=== PATIENT | female | born 1975 | race Caucasian/White ===

== ENCOUNTER 2019-03-04 20:48 | Inpatient (IN) | payer OTHER ==
[2019-03-04] MEDS ORDERED: LACTATED RINGERS 1,000 ML ONE ×2 (21:34→23:15)
[2019-03-04] MEDS ORDERED: PITOCin/NS 30 UNIT/500ML 30,000 MILLIUNITS/500 ML BAG IV ONE (23:15)
[2019-03-04] MEDS ORDERED: PITOCin/NS 30 UNIT/500ML 30 UNITS/500 ML BAG IV SCH (23:45)
[2019-03-04] MEDS ORDERED: LACTATED RINGERS 1,000 ML IV SCH (23:45)
[2019-03-05 00:12] LABS: Hematocrit 37.1 % (30.3-42.9); Hemoglobin 12.1 gm/dl (10.1-14.3); Mean Corpuscular HGB Conc 33 % (30-34); Mean Corpuscular Volume 89 fl (79-97); Red Blood Count 4.18 M/mm3 (3.65-5.03); Red Cell Distribution Width 14.8 % (13.2-15.2)
[2019-03-05 00:15] LABS: Platelet Count 140 K/mm3 (140-440)
--- NOTE | 2019-03-05 05:54 | History and Physical Report ---
History of Present Illness Date of examination: 03/05/19 Date of admission: 03/04/19 20:48 Chief complaint: Induction of labor History of present illness: Pt is a 43yo HF EDC 03/04/19; EGA 40 1/7 weeks presents for induction of labor. She received care at [facility] since 11 weeks and course has been unremarkable except for AMA. records are available and GBS is Negative. Past History Past Medical History: no pertinent history Past Surgical History: breast surgery Family/Genetic History: none Social history: no significant social history, single - Obstetrical History Expected Date of Delivery: 03/04/19 Actual Gestation: 40 Week(s) 1 Day(s) : 2 Medications and Allergies Allergies Allergy/AdvReac Type Severity Reaction Status Date / Time No Known Allergies Allergy Unverified 03/04/19 23:52 Active Meds: Active Medications Lactated Ringer's (Lactated Ringers) 1,000 mls @ 125 mls/hr IV DIRECT MADELEINE Oxytocin/Sodium Chloride (Pitocin/Ns 30 Unit/500ml) 30 units in 500 mls @ 1 mls/hr IV TITR MADELEINE; Protocol Review of Systems All systems: negative - Vital Signs Vital signs: Vital Signs Pulse BP 71 118/68 03/04/19 21:17 03/04/19 21:17 Temp Pulse Resp BP Pulse Ox 71 118/68 03/04/19 21:17 03/04/19 21:17 - Physical Exam Breasts: Positive: deferred Cardiovascular: Regular rate Lungs: Positive: Clear to auscultation Abdomen: Positive: normal appearance Genitourinary (Female): Positive: normal external genitalia Vagina: Positive: normal moisture Uterus: Positive: enlarged Extremities: Positive: normal - Obstetrical FHR: category 1 Uterine Contraction Monitor Mode: External Cervical Dilatation: 0 (per nurse) Cervical Effacement Percentage: 50 (per nurse) station: -2 Uterine Contraction Pattern: Absent Results Result Diagrams: 03/04/19 23:23 All other labs normal. Assessment and Plan - Patient Problems (1) 40 weeks gestation of Onset Date: 03/05/19 Current Visit: Yes Status: Acute Plan to address problem: A: IUP @ 40 1/7 weeks AMA P: Admit for cervidil/pitocin induction of labor (2) AMA (advanced maternal age) multigravida 35+ Onset Date: 03/05/19 Current Visit: Yes Status: Acute Qualifiers: Trimester: third trimester Qualified Code(s): O09.523 - Supervision of elderly multigravida, third trimester
[2019-03-05] MEDS ORDERED: MINERAL OIL PO PRN (05:57)
[2019-03-05] MEDS ORDERED: SUBLIMAZE IV PRN (05:57)
[2019-03-05] MEDS ORDERED: XYLOCAINE 2% INFILTRATI ONE (05:57)
[2019-03-05] MEDS ORDERED: ZOFRAN IV PRN (05:57)
[2019-03-05] MEDS ORDERED: STADOL IV PRN (05:57)
[2019-03-05] MEDS ORDERED: BRETHINE SUB-Q PRN (05:57)
[2019-03-05] MEDS ORDERED: BRETHINE IVP PRN (05:57)
[2019-03-05] MEDS ORDERED: PITOCin/NS 20 UNIT/1000ML DRIP 20 UNITS/1,000 ML BAG IV SCH (06:00)
[2019-03-05] MEDS ORDERED: PITOCin/NS 30 UNIT/500ML 30 UNITS/500 ML BAG IV SCH (06:00)
--- NOTE | 2019-03-05 09:01 | Progress Note ---
Assessment and Plan - Patient Problems (1) Encounter for induction of labor Current Visit: Yes Status: Acute Plan to address problem: Stop low dose Pitocin May eat breakfast Place cervidil at 1000 Anticipate (2) AMA (advanced maternal age) multigravida 35+ Onset Date: 03/05/19 Current Visit: Yes Status: Acute Qualifiers: Trimester: third trimester Qualified Code(s): O09.523 - Supervision of elderly multigravida, third trimester Subjective - Subjective Date of service: 03/05/19 (0857) Principal diagnosis: IOL Interval history: See admission H & P Patient reports: movement normal, contractions (irregular), no loss of fluid, no vaginal bleeding Objective - Vital Signs Vital Signs: Vital Signs - 12hr 03/04/19 03/05/19 21:17 07:15 Temperature 97.6 F Pulse Rate 71 Blood Pressure 118/68 - Exam Breasts: deferred Cardiovascular: Regular rate Lungs: Normal air movement Abdomen: Present: other (gravid) Vulva: both: normal Uterus: Present: other (gravid, S=D) FHR: category 1 Uterine Contraction Monitor Mode: External Cervical Dilatation: 1 Cervical Effacement Percentage: 50 station: -3 Uterine Contraction Frequency (min): 2-4 Uterine Contraction Pattern: Irregular Uterine Tone Measurement Phase: Resting Uterine Contraction Intensity: Mild Extremities: normal Deep Tendon Reflex Grade: Normal +2 - Labs Labs: Laboratory Results - last 24 hr 03/04/19 03/04/19 23:23 23:30 WBC 7.0 RBC 4.18 Hgb 12.1 Hct 37.1 MCV 89 MCH 29 MCHC 33 RDW 14.8 Plt Count 140 Blood Type A POSITIVE Antibody Screen Negative
[2019-03-05] MEDS ORDERED: CERVIDIL VG ONE (10:00)
[2019-03-05] MEDS: LACTATED RINGERS 1,000 ML IV SCH (14:49)
--- NOTE | 2019-03-05 18:54 | Event Note ---
Date: 03/05/19 Assumed care of patient at 5:00 PM. Patient had Cervidil. Cervidil is now out of vagina and lying on bed. Patient requests pain medication. SVE 4-5/100/-3 to -4 station.
--- NOTE | 2019-03-05 20:04 | Ultrasound Report ---
ULTRASOUND OBSTETRIC INDICATION / CLINICAL INFORMATION: EFW. Clinical Gestational Age (GA): LMP uncertain TECHNIQUE: Transabdominal. COMPARISON: None available. FINDINGS: There is a single intrauterine . Biparietal Diameter = 9.5 cm = 38 weeks, 4 day(s). Head Circumference = 33.1 cm = 37 weeks, 5 day(s). Abdominal Circumference = 35.3 cm = 39 weeks, 2 day(s). Femur Length = 7.7 cm = 39 weeks, 3 day(s). Average Ultrasound Age (AUA) = 38 weeks, 5 day(s). Heart Rate: 138 beats per minute. Estimated Weight in grams (if calculated): 3665 Estimated Weight Growth Percentile (if calculated): Not calculated Position: cephalic. Cervix: Not examined Placenta: Fundal and free of the os. Amniotic Fluid Volume: Visually decreased Amniotic Fluid Index (MIRIAM) in cm (if calculated): Not calculated. Maternal Adnexa: Not visualized IMPRESSION: 1. Single, living intrauterine with estimated sonographic age of 38 weeks, 5 day(s). 2. Oligohydramnios with no amniotic fluid visualized on the included images. Signer Name: Moises Dos Santos MD Signed: 03/05/2019 7:59 PM Workstation Name: [id number]
[2019-03-05] MEDS ORDERED: NARCAN 2 MG/2 ML IV PRN (20:21)
--- NOTE | 2019-03-05 20:35 | Anesthesia Consultation ---
Anesthesia Consult and Med Hx Date of service: 03/05/19 - Airway Anesthetic Teeth Evaluation: Good ROM Head & Neck: Adequate Mental/Hyoid Distance: Adequate Mallampati Class: Class II Intubation Access Assessment: Probably Good - Pulmonary Exam CTA: Yes - Cardiac Exam Cardiac Exam: RRR - Pre-Operative Health Status ASA Pre-Surgery Classification: ASA2 Proposed Anesthetic Plan: Epidural - Pulmonary Hx Smoking: No Hx Asthma: No Hx Respiratory Symptoms: No SOB: No COPD: No Home Oxygen Therapy: No Hx Pneumonia: No Hx Sleep Apnea: No - Cardiovascular System Hx Hypertension: No Hx Coronary Artery Disease: No Hx Heart Attack/AMI: No Hx Angina: No Hx Percutaneous Transluminal Coronary Angioplasty (PTCA): No Hx Cardia Arrhythmia: No Hx Pacemaker: No Hx Internal Defibrillator: No Hx Valvular Heart Disease: No Hx Heart Murmur: No Hx Peripheral Vascular Disease: No - Central Nervous System Hx Neuromuscular Disorder: No Hx Seizures: No CVA: No Hx Back Pain: Yes Hx Psychiatric Problems: No - Gastrointestinal Hx Ulcer: No Hx Gastroesophageal Reflux Disease: Yes - Endocrine Hx Renal Disease: No Hx End Stage Renal Disease: No Hx Cirrhosis: No Hx Liver Disease: No Hx Insulin Dependent Diabetes: No Hx Non-Insulin Dependent Diabetes: No Hx Thyroid Disease: No Hx Hypothyroidism: No Hx Hyperthyroidism: No - Hematic Hx Anemia: No Hx Sickle Cell Disease: No - Other Systems Hx Alcohol Use: No Hx Substance Use: No Hx Cancer: No Hx Obesity: No
[2019-03-05] MEDS ORDERED: fentaNYL-BUPIV 2 MCG/ML-0.125% 200 MCG/100 ML BAG EPIDURAL SCH (21:00)
--- NOTE | 2019-03-05 23:00 | Event Note ---
Date: 03/05/19 SVE /-1.
[2019-03-06] MEDS: LACTATED RINGERS 1,000 ML IV SCH ×2 (03:14→18:14)
--- NOTE | 2019-03-06 03:41 | Event Note ---
Date: 03/06/19 SVE: /-2. Patient has been receiving Pitocin for augmentation of labor. Consulted with Dr. Singh re: patient and slow cervical change. Dr. Singh states he will perform a section. Discussed this plan with patient and family.
--- NOTE | 2019-03-06 03:56 | Event Note ---
Date: 03/06/19 Patient declined/refused section. Notified Dr. Singh.
--- NOTE | 2019-03-06 04:52 | Event Note ---
Date: 03/06/19 Induction of labor stalled at 9 cm for the past 5-6 hours. heart tracing cat 2. Op, at 0-3 station, meconium stained fluid. Cervix 8cm dilated. Situation explained to patient through a Greek speaking retarder operator. Risks of continuing induction and delivery fully explained. section was ordered. Pitocin induction was ordered to be discontinued. IMP: CPD, Failure to progress. Plan: For delivery.
[2019-03-06] MEDS ORDERED: BICITRA PO ONE (05:00)
[2019-03-06] MEDS ORDERED: BICITRA ONE (05:12)
[2019-03-06] MEDS ORDERED: PEPCID IV ONE ×2 (05:12→07:25)
[2019-03-06] MEDS ORDERED: REGLAN ONE (05:12)
[2019-03-06] MEDS ORDERED: DILAUDID IV PRN ×3 (05:13→07:28)
[2019-03-06] MEDS ORDERED: ZOFRAN IV PRN ×2 (05:13→07:28)
[2019-03-06] MEDS ORDERED: NARCAN 0.4 MG/1 ML IV PRN ×3 (05:13→07:28)
--- NOTE | 2019-03-06 05:13 | Anesthesia Day of Surgery ---
Anesthesia Day of Surgery - Day of Surgery Patient Examined: Yes Patient H&P Reviewed: Yes Patient is NPO: Yes Beta Blockers: Yes Cardiac Clearance: No Pulmonary Clearance: No Zachary's Test: N/A
[2019-03-06] MEDS ORDERED: MARCAINE 0.5% INFILTRATI ONE (05:18)
[2019-03-06] MEDS ORDERED: SUBLIMAZE ONE (05:25)
[2019-03-06] MEDS ORDERED: XYLOCAINE MPF 2% ONE ×2 (05:26→06:16)
[2019-03-06] MEDS ORDERED: NACL 0.9% IR ONE (05:40)
[2019-03-06] MEDS ORDERED: WATER FOR IRRIG STERILE IR ONE (05:40)
[2019-03-06] MEDS ORDERED: SODIUM CHLORIDE FLUSH SYRINGE 10 ML IV NR ×3 (06:00→08:00)
[2019-03-06] MEDS ORDERED: VERSED ONE (06:31)
[2019-03-06] MEDS ORDERED: TUCKS PAD TP PRN (07:00)
[2019-03-06] MEDS ORDERED: PHENERGAN PR PRN (07:00)
[2019-03-06] MEDS ORDERED: PERCOCET 5/325 PO PRN (07:00)
[2019-03-06] MEDS ORDERED: PITOCin/NS 20 UNIT/1000ML DRIP 20 UNITS/1,000 ML BAG IV SCH (07:00)
--- NOTE | 2019-03-06 07:03 | Operative Report ---
Operative Report Operative Report: Date of surgery: 03/06/2019. Preoperative diagnosis: Failure to progress, failed induction, cephalopelvic dis proportion. Postoperative diagnoses: The same. Procedure: Low segment transverse section. Surgeon:Lindsay Singh MD. Child Guidance Counselor: Kristina Chavez CRNA. Anesthesia: Spinal blockade. Estimated blood loss 300 mL. Complications: None Findings: There was a live baby boy, 9 lbs. 1 oz., Apgars 8 and 9 in the occiput posterior position within the false maternal pelvis. Both ovaries and fallopian tubes were grossly normal. The uterus was unremarkable gravid structure. There was no discernible peritoneal adhesions within the pelvis. The loops of bowel palpable through the Pfannenstiel incision were all grossly normal. Procedure in detail: The patient was taken to the operating room. She already had indwelling Cade catheter. She was given a spinal blockade. The patient was placed in the straight supine position with a slight left lateral tilt. The patient was prepped and the abdomen. The drapes where placed. A timeout was done. With the go ahead from the crop specialist a Pfannenstiel incision was made. This incision was carried across the subcutaneous layer and to the fascia which was then divided transversely. The underlying flaps of correct thigh abdominis muscle flaps were freed using a combination of sharp and blunt dissections. The anterior parietal peritoneum was carefully identified and then breached. The laparotomy was widened by manual stretching. The bladder blade was applied. The uterovesical peritoneal flap was divided transversely allowing the bladder to be displaced caudally. The uterine incision was placed transversely in the lower segment. The uterine cavity was entered bluntly with the index finger. There was an effusion of clear amniotic fluid. The head of the fetus was easily lifted out of the false pelvis and delivered through the incision using fundal pressure. The airways were bulb suctioned beginning with the month. The rest of the baby was delivered by a combination of gentle traction on the mandibular processes as well as continuing fundal pressure. The umbilical cord was double clamped and divided and the baby passed on safely to the pediatric team. The placenta was manually removed from the uterine cavity. The uterine cavity was explored and was empty of any placental remnants. The uterine incision was repaired in 3 layers with 0 Vicryl. Hemostasis was excellent. The integrity of the urinary bladder was checked by examination of the tissues around the bulb of the Cade catheter. The anterior parietal peritoneum was repaired with #1 Vicryl. The fascia was repaired with 0 Vicryl. The skin was closed subcuticularly with 4-0 Vicryl on a Eduard needle. Patient tolerated the procedure well. There were no complications. The estimated blood loss was 300 mL. All sponge and instrument counts were correct. The patient was transferred to the recovery room in very good condition.
--- NOTE | 2019-03-06 07:28 | Post Anesthesia Evaluation ---
- Post Anesthesia Evaluation Patient Participated: Yes Airway Patent: Yes Stable Respiratory Function: Yes Nausea/Vomiting: No Temp > 96.8F: Yes Pain Manageable: Yes Adequeate Hydration: Yes Anesthesia Complications: No Block Receding Appropriately: Yes Patient on Ventilator: No
[2019-03-06] MEDS ORDERED: ceFAZolin 2 GM in NACL 0.9% 100 ML IV ONE (08:00)
[2019-03-06] MEDS ORDERED: REGLAN IV NR (08:00)
[2019-03-06] MEDS: PERCOCET 5/325 PO PRN ×3 (09:03→20:36)
[2019-03-06] MEDS: ANCEF/NS 1 GM/50 ML 1 GM/50 ML BAG IV SCH ×2 (14:39→22:14)
[2019-03-06 18:16] LABS: Hematocrit 30.2 % (30.3-42.9); Hemoglobin 9.8 gm/dl (10.1-14.3)
[2019-03-07] MEDS: PERCOCET 5/325 PO PRN ×4 (01:39→18:16)
[2019-03-07] MEDS: LACTATED RINGERS 1,000 ML IV SCH (03:25)
[2019-03-07] MEDS: ANCEF/NS 1 GM/50 ML 1 GM/50 ML BAG IV SCH ×2 (05:43→14:00)
[2019-03-07] MEDS: MYLICON PO PRN (10:30)
[2019-03-07] MEDS ORDERED: FEOSOL PO SCH (16:00)
--- NOTE | 2019-03-07 16:02 | Progress Note ---
Assessment and Plan A: /postop day 1 S/P primary low transverse section. Anemia secondary to and blood loss. P: Supplement with iron. Encouraged ambulation. Subjective - Subjective Date of service: 03/07/19 Principal diagnosis: /postop day 1 S/P primary low transverse section Interval history: /postop day 1 S/P primary low transverse section. Doing well. Reports small amount of lochia. Voiding without difficulty. Passing gas. Ambulating well. Tolerating a regular diet. Patient denies headache, chest pain, cough, shortness of breath, leg pain, heavy bleeding, or abdominal pain. Patient reports: appetite normal, voiding normally, pain well controlled, flatus, ambulating normally, no dizzy ambulation, no nauseated Goodells: doing well Objective - Vital Signs Latest vital signs: Vital Signs Temp Pulse Resp BP BP Pulse Ox 03/07/19 15:21 97.6 F 81 24 98/62 97 03/07/19 12:29 18 03/07/19 09:38 97.8 F 61 16 123/72 94 03/07/19 05:44 98.2 F 88 20 93/61 98 03/06/19 23:49 98.5 F 76 20 96/64 97 03/06/19 19:39 98.6 F 85 20 97/62 99 03/06/19 16:30 98.1 F 73 20 98/63 98 Intake and Output 03/07/19 03/07/19 03/07/19 07:59 15:59 23:59 Intake Total 1000 Output Total 1000 Balance 0 Intake: IV 1000 Lactated Ringers 1,000 ml 1000 @ 125 mls/hr IV DIRECT MADELEINE Rx#:[id number] Output: Urine 1000 Void 1000 Other: Total, Output Amount 700 # Voids Void 1 - Exam Cardiovascular: Present: Regular rate, Normal S1, Normal S2, No murmurs Lungs: Present: Clear to auscultation Abdomen: Present: normal appearance, soft, normal bowel sounds. Absent: distention, tenderness, guarding, rigidity Uterus: Present: normal, firm, fundal height below umbilicus. Absent: bogginess, tenderness Extremities: Present: normal. Absent: tenderness, edema Incision: Present: normal, dry, intact, dressed - Labs Labs: Abnormal lab results 03/06/19 Range/Units 17:42 Hgb 9.8 L (10.1-14.3) gm/dl Hct 30.2 L D (30.3-42.9) %
[2019-03-08] MEDS: PERCOCET 5/325 PO PRN ×5 (00:53→23:39)
[2019-03-08] MEDS: FEOSOL PO SCH ×2 (09:51→21:50)
[2019-03-08] MEDS: MYLICON PO PRN (09:51)
--- NOTE | 2019-03-08 10:36 | Progress Note ---
Assessment and Plan - Patient Problems (1) AMA (advanced maternal age) multigravida 35+ Onset Date: 03/05/19 Current Visit: Yes Status: Acute Qualifiers: Trimester: third trimester Qualified Code(s): O09.523 - Supervision of elderly multigravida, third trimester (2) S/P section Current Visit: Yes Status: Acute Plan to address problem: Continue routine PP orders Keep incision clean and dry Anticipate d/c home in 24 hrs (3) Anemia Current Visit: Yes Status: Acute Qualifiers: Anemia type: other cause Other causes of anemia: acute posthemorrhagic Qualified Code(s): D62 - Acute posthemorrhagic anemia Subjective - Subjective Date of service: 03/08/19 Principal diagnosis: /postop day 2 S/P primary low transverse section Interval history: See admission H & P and PP progress notes Patient reports: appetite normal, voiding normally, pain well controlled (with medications), flatus, ambulating normally, no bowel movement : doing well, bottle feeding (and ) Objective - Vital Signs Latest vital signs: Vital Signs Temp Pulse Resp BP BP Pulse Ox 03/08/19 08:28 98 F 69 20 90/51 03/07/19 23:10 98.2 F 77 20 99/67 97 03/07/19 18:16 18 03/07/19 16:51 97.8 F 82 16 97/51 100 03/07/19 15:21 97.6 F 81 24 98/62 97 03/07/19 12:29 18 Intake and Output 03/07/19 03/08/19 03/08/19 23:59 07:59 15:59 Intake Total 240 320 Balance 240 320 Intake: Oral 240 320 Other: Total, Intake Amount 240 320 # Voids Void 1 1 - Exam Breasts: Present: normal Cardiovascular: Present: Regular rate Lungs: Present: Normal air movement Abdomen: Present: soft, tenderness, normal bowel sounds Uterus: Present: firm, fundal height below umbilicus (U-1) Extremities: Present: normal, edema (slight edema in BLE) Deep Tendon Reflex Grade: Normal +2 Incision: Present: dry, intact (no signs of infection noted)
--- NOTE | 2019-03-08 10:41 | Discharge Summary ---
Providers - Providers Date of Admission: 03/04/19 20:48 Date of discharge: 03/09/19 Attending physician: JENELLE STUBBS MD Primary care physician: JENELLE STUBBS MD Hospitalization Reason for admission: section, induction of labor (failed), other Delivery: Procedure: section Episiotomy: none Laceration: none Incision: dry, intact (no signs of infection) Other procedures: none complications: none Discharge diagnosis: IUP at term delivered, other (S/P C/S) baby: male Hospital course: See admission H & P and OB operative summary and PP progress notes Condition at discharge: Stable Disposition: DC-01 TO HOME OR SELFCARE - Discharge Diagnoses (1) AMA (advanced maternal age) multigravida 35+ Status: Acute Qualifiers: Trimester: third trimester Qualified Code(s): O09.523 - Supervision of elderly multigravida, third trimester (2) S/P section Status: Acute (3) Anemia Status: Acute Qualifiers: Anemia type: other cause Other causes of anemia: acute posthemorrhagic Qualified Code(s): D62 - Acute posthemorrhagic anemia Plan - Discharge Medications Prescriptions: Ferrous Sulfate [Feosol 325 MG tab] 325 mg PO BID 30 Days #60 tablet - Provider Discharge Summary Activity: routine, no sex for 6 weeks, no heavy lifting 4 weeks, no strenuous exercise Diet: other (Iron rich diet) Instructions: routine Additional instructions: [] Smoking cessation referral if applicable(refer to patient education folder for contact #) [] Refer to [facility]'s [facility] Booklet Call your doctor immediately for: * Fever > 100.5 * Heavy vaginal bleeding ( >1 pad per hour) * Severe persistent headache * Shortness of breath * Reddened, hot, painful area to leg or breast * Drainage or odor from incision. * Keep incision clean and dry at all times and follow doctor's instructions regarding bathing/showering * Continue daily oral iron supplementation as directed with OJ - Follow up plan Follow up: JENELLE STUBBS MD [Primary Care Provider] - 7 Days
[2019-03-08] MEDS: IBUPROFEN PO PRN (13:09)
[2019-03-09] MEDS: IBUPROFEN PO PRN (05:33)
[2019-03-09] MEDS: PERCOCET 5/325 PO PRN (09:40)
[2019-03-09] MEDS: FEOSOL PO SCH (09:40)
[2019-03-09 13:45] VITALS: BP 113/74
== END 2019-03-09 14:50 | disposition home or self-care (01) | DRG 787 ==
LOC: LD 20:48 → OB 03-06 08:40
PROVIDERS: ADMIT Obstetrics & Gynecology; ATTEND Obstetrics & Gynecology
PROC: 10D00Z1 Extraction of Products of Conception, Low, Open Approach (ICD-10-PCS; principal; 2019-03-06)
DX: O33.9 Maternal care for disproportion, unspecified (principal); D62 Acute posthemorrhagic anemia; O99.62 Diseases of the digestive system complicating childbirth; O77.0 Labor and delivery complicated by meconium in amniotic fluid; K21.9 Gastro-esophageal reflux disease without esophagitis; O99.02 Anemia complicating childbirth; O61.9 Failed induction of labor, unspecified; Z3A.40 40 weeks gestation of pregnancy; Z37.0 Single live birth
CPT/HCPCS: 36415; 59200; 76816; 85014; 85018; 85027; 86592; 86850; 86900; 86901; G0378; J0690; J2250; J2590; J2765; J3010; J7120